=== PATIENT | female | born 1935 | race Caucasian/White ===

== ENCOUNTER 2016-09-25 20:04 | Emergency (ER) | payer OTHER ==
[~2016-09-25] VITALS: Ht 157.5 cm; Wt 86.2 kg
[~2016-09-25 20:04] MED LIST: ACETAMINOPHEN-1 EAC1 PO; ALTACE10 MG PO; ARICEPT10 MG PO; CENTRUM SILVER1 EAC4 PO; CEPHALEXIN500 M1 PO; Coumadin dosing per PO; DITROPAN XL10 MG PO; DONEPEZIL HCL10 MG PO; FLONASE ALLERG9.9 ML BOTH NARES; Flonase BOTH NARES; HYDRODIURIL,O12.5 M2 PO; K-DUR20 MEQ PO; MEDROL DOSEPAK4 MG PO; MIRALAX, GLYCOL1 PK1 PO; NAMENDA10 MG PO; NEBULIZER IH; Namenda PO; PAXIL30 MG PO; PLAVIX75 MG PO; PRADAXA150 MG PO; PROVENTIL,2.5 MG/3 M IH; Prevacid PO; RAMIPRIL5 MG PO; SKELAXIN800 MG PO; SUPER B COMP1 TABLET PO; TYLENOL WITH C1 EACH PO; ULTRAM50 MG PO; XARELTO20 MG PO
[2016-09-25 21:45] VITALS: BP 127/65
== END 2016-09-25 21:46 | disposition home or self-care (01) ==
LOC: EME 20:04
PROC: 2W3DX1Z Immobilization of Left Lower Arm using Splint (ICD-10-PCS; principal; 2016-09-25)
DX: S09.90XA Unspecified injury of head, initial encounter (principal); S00.83XA Contusion of other part of head, initial encounter; S01.81XA Laceration without foreign body of other part of head, initial encounter; S62.307A Unspecified fracture of fifth metacarpal bone, left hand, initial encounter for closed fracture; W10.8XXA Fall (on) (from) other stairs and steps, initial encounter; E11.9 Type 2 diabetes mellitus without complications; K21.9 Gastro-esophageal reflux disease without esophagitis
CPT/HCPCS: 70450; 70486; 72125; 73130; 99281; 99284

== ENCOUNTER 2017-03-20 08:31 | Observation (INO) | payer OTHER ==
[~2017-03-20] VITALS: Ht 149.9 cm; Wt 80.1 kg
[~2017-03-20 08:31] MED LIST changes: -SUPER B COMP1 TABLET PO; +SUPER B COMPLE1 EAC2 PO
[2017-03-20 09:06] LABS: HEMATOCRIT 43.1 % (36.0-46.0); MCHC 33.6 G/DL (30.0-36.0); MCV 95.1 FL (83-99); MEAN PLAT.VOLUME 10.5 uM^3 (9.5-12.4); PLATELET COUNT 161 K/uL (156-360); RBC DIS.WIDTH-CV 12.4 % (11.8-14.6); RBC DIS.WIDTH-SD 43.4 % (39-53); RED BLOOD COUNT 4.53 M/uL (3.80-5.20); WHITE BLOOD COUNT 6.7 K/uL (4.1-10.2)
[2017-03-20 09:19] LABS: CHLORIDE 105 mEq/L (99-109); POTASSIUM 3.8 mEq/L (3.7-5.4); SODIUM 142 mEq/L (136-147)
[2017-03-20 09:21] LABS: GLUCOSE 110 mg/dL (70-99)
[2017-03-20 09:22] LABS: ANION GAP 13 MEQ/L (2-14)
[2017-03-20 09:25] LABS: GFR ESTIMATE (CALCULATED) > 59 mL/min/
[2017-03-20 09:26] LABS: UREA NITROGEN (BUN) 13 mg/dL (9-23)
[2017-03-20 09:27] LABS: TROP-I INTERPRETATION NEGATIVE; TROPONIN-I < 0.01 ng/mL (0.0-0.30)
[2017-03-20] MEDS ORDERED: SEROQUEL50 MG PO (12:34)
[2017-03-20] MEDS ORDERED: GAS-X125 MG PO (12:35)
[2017-03-20] MEDS ORDERED: [UNRECOGNIZED DRUG - OTHER] PO (12:38)
[2017-03-20 16:00] LABS: TROP-I INTERPRETATION NEGATIVE; TROPONIN-I < 0.01 ng/mL (0.0-0.30)
[2017-03-20 17:44] VITALS: BP 132/58
[2017-03-20 22:22] LABS: TROP-I INTERPRETATION NEGATIVE; TROPONIN-I < 0.01 ng/mL (0.0-0.30)
[2017-03-20 23:53] VITALS: BP 116/53
[2017-03-21 03:42] VITALS: BP 111/54
== END 2017-03-21 10:21 | disposition home or self-care (01) ==
LOC: EME 08:31 → ENRESERV 11:20 → EDOF 11:21 → ENRESERV 15:36 → 5WEST 17:32 → ENPENDDIS 03-21 → 5WEST 03-21 10:21
PROVIDERS: Internal Medicine
DX: R07.89 Other chest pain (principal); G30.9 Alzheimer's disease, unspecified; F02.80 Dementia in other diseases classified elsewhere, unspecified severity, without behavioral disturbance, psychotic disturbance, mood disturbance, and anxiety; I10 Essential (primary) hypertension; Z90.49 Acquired absence of other specified parts of digestive tract; Z90.710 Acquired absence of both cervix and uterus; Z90.722 Acquired absence of ovaries, bilateral; Z90.79 Acquired absence of other genital organ(s); Z87.891 Personal history of nicotine dependence
CPT/HCPCS: 71020; 80048; 84484; 85027; 93005; 99281; 99285; G0378; G8978 GP CJ; G8979 GP CI; G8980 CJ; G8987 GO CJ; G8988 CI; G8989 CJ; J1885

== ENCOUNTER 2017-06-20 09:24 | Emergency (ER) | payer OTHER ==
[~2017-06-20] VITALS: Ht 160 cm; Wt 72.2 kg
[~2017-06-20 09:24] MED LIST changes: +GAS-X125 MG PO; +SEROQUEL50 MG PO; +[UNRECOGNIZED DRUG - OTHER] PO
[2017-06-20 10:16] LABS: HEMATOCRIT 41.1 % (36.0-46.0); HEMOGLOBIN 13.6 G/DL (11.9-15.5); MCH 31.8 PG (29.0-34.0); MCHC 33.1 G/DL (30.0-36.0); PLATELET COUNT 158 K/uL (156-360); RBC DIS.WIDTH-CV 12.7 % (11.8-14.6); RBC DIS.WIDTH-SD 44.4 % (39-53); RED BLOOD COUNT 4.28 M/uL (3.80-5.20)
[2017-06-20 10:27] LABS: CHLORIDE 107 mEq/L (99-109); POTASSIUM 3.4 mEq/L (3.7-5.4)
[2017-06-20 10:28] LABS: SODIUM 145 mEq/L (136-147)
[2017-06-20 10:29] LABS: GLUCOSE 105 mg/dL (70-99)
[2017-06-20 10:33] LABS: CREATININE 1.2 mg/dL (0.6-1.3); GFR ESTIMATE (CALCULATED) 45 mL/min/
[2017-06-20 10:34] LABS: UREA NITROGEN (BUN) 20 mg/dL (9-23)
[2017-06-20 10:56] LABS: BASOPHIL (%) 0.4 % (0-1); EOSINOPHIL COUNT 0.1 K/uL (0-0.3); HEMATOCRIT 41.8 % (36.0-46.0); HEMOGLOBIN 13.7 G/DL (11.9-15.5); IMMATURE GRANULOCYTE (%) 0.3 % (0.0-0.7); LYMPHOCYTE (%) 20.8 % (15-42); LYMPHOCYTE COUNT 1.5 K/uL (1.0-2.8); MCH 31.8 PG (29.0-34.0); MCHC 32.8 G/DL (30.0-36.0); MONOCYTE (%) 8.7 % (3-12); MONOCYTE COUNT 0.6 K/uL (0-0.8); NEUTROPHIL (%) 68.8 % (45-76); NEUTROPHIL COUNT 4.8 K/uL (1.8-6.4); PLATELET COUNT 150 K/uL (156-360); RBC DIS.WIDTH-CV 12.7 % (11.8-14.6); RBC DIS.WIDTH-SD 45.4 % (39-53); RED BLOOD COUNT 4.31 M/uL (3.80-5.20)
[2017-06-20 11:01] LABS: CARBON DIOXIDE (BICARBONATE) 33.6 MEQ/L (20-31)
[2017-06-20 11:17] LABS: TROP-I INTERPRETATION NEGATIVE; TROPONIN-I < 0.01 ng/mL (0.0-0.30)
[2017-06-20 14:17] VITALS: BP 97/61
== END 2017-06-20 14:37 | disposition home or self-care (01) ==
LOC: EME 09:24
PROVIDERS: Emergency Medicine
DX: R53.1 Weakness (principal); F03.90 Unspecified dementia, unspecified severity, without behavioral disturbance, psychotic disturbance, mood disturbance, and anxiety; J44.9 Chronic obstructive pulmonary disease, unspecified; I10 Essential (primary) hypertension; E11.9 Type 2 diabetes mellitus without complications; K21.9 Gastro-esophageal reflux disease without esophagitis; Z86.718 Personal history of other venous thrombosis and embolism; Z96.611 Presence of right artificial shoulder joint; Z96.612 Presence of left artificial shoulder joint; Z95.828 Presence of other vascular implants and grafts; Z79.01 Long term (current) use of anticoagulants; Z88.5 Allergy status to narcotic agent; Z87.891 Personal history of nicotine dependence
CPT/HCPCS: 70450; 71046; 80048; 82803; 82948; 83605; 84484; 85025; 85027; 93005; J7030

== ENCOUNTER 2017-11-12 19:38 | Emergency (ER) | payer OTHER ==
[~2017-11-12] VITALS: Ht 160 cm; Wt 76.8 kg
[2017-11-12 21:49] LABS: INTER. NORMALIZED RATIO 1.4
[2017-11-12 21:51] LABS: PTT 26.6 SEC (25-37)
[2017-11-13 02:00] VITALS: BP 184/96
== END 2017-11-13 02:00 ==
LOC: EME → EDBD 19:38 → EME 19:38
PROVIDERS: Physician Assistant Medical
DX: I82.421 Acute embolism and thrombosis of right iliac vein (principal); I82.4Z1 Acute embolism and thrombosis of unspecified deep veins of right distal lower extremity; Z86.718 Personal history of other venous thrombosis and embolism; F03.90 Unspecified dementia, unspecified severity, without behavioral disturbance, psychotic disturbance, mood disturbance, and anxiety; E11.9 Type 2 diabetes mellitus without complications; I10 Essential (primary) hypertension; J43.9 Emphysema, unspecified; K21.9 Gastro-esophageal reflux disease without esophagitis; Z90.49 Acquired absence of other specified parts of digestive tract; Z96.611 Presence of right artificial shoulder joint; Z96.612 Presence of left artificial shoulder joint; Z51.5 Encounter for palliative care; Z87.891 Personal history of nicotine dependence; Z88.5 Allergy status to narcotic agent; Z88.6 Allergy status to analgesic agent
CPT/HCPCS: 85610; 85730; 93971; 99281; 99284